=== PATIENT | female | born 1990 | race Caucasian/White ===

== ENCOUNTER 2021-12-29 14:12 | Emergency (ER) | payer OTHER ==
[~2021-12-29] VITALS: Ht 157.5 cm; Wt 57.6 kg
[2021-12-29 14:12] VITALS: BP 111/78
--- NOTE | 2021-12-29 14:15 | NUR ---
RECEIVED CALL FROM JENY FROM [facility]. PT IS A [employer], NO HOLD/SI/HI. JENY STATED THAT PT IS NORMALLY A/O X4/AMBULATORY BUT TODAY SHE ONLY WANTS TO SLEEP, LETHARGIC AND UNAWARE OF YEAR. PT A/O X1- NAME. UNAWARE OF SITUATION, DATE- STATED IT WAS 2011, LOCATION.
--- NOTE | 2021-12-29 15:00 | NUR ---
MD LO AT BEDSIDE FOR EVALUATION
--- NOTE | 2021-12-29 15:02 | NUR ---
31YO FEMALE PT BIBA FROM [facility] DUE TO ALOC XTHIS MORNING. PT STATES SHE FELL FORWARD ONTO DOOR CAUSING HER TO HIT HER FACE. DENIES LOC. PRESENTS WITH BRUISED NON PITTING SWELLING ON NOSE , LIPS AND TORY KNEES. PT WAS SEEN AT [facility] AND TOLD SHE HAD FRACTURED NOSE. PER FACILITY , PT LETHRAGIC AND WITH LOW BP. PT AAOX2 TO NAME AND SITUATION. WHEN ASKED ABOUT DATE , PT STATES "2011". SPEAKING CLEAR W/ SLIGHT DELAY . AMBULATORY W/ ASSIST. DENIES N/V/D , CHEST PAIN, SOB , FEVER OR CHILLS. RESPIRATIONS EVEN AND UNLABORED. PT IN VIEW, BED AT LOWEST POSITION, BED RAILS UPX2. HX :SCHIZOAFFECTIVE DISORDER, BIPOLAR, CONGENITAL HYPOTHYDRODISM WITH DIFFUSE GOITER, UNSPECIFIC CONVULSIONS ALLERGIES:PCN, IODINE, CRANBERRY
[2021-12-29] MEDS ORDERED: NACL 0.9% 1,000 ML IV ONE ×2 (15:05→15:50)
[2021-12-29 15:13] LABS: BASOPHILS % (AUTO) 0.2 % (0.0-2.0); EOSINOPHILS % (AUTO) 0.2 % (0.0-4.0); HEMATOCRIT 37.9 % (36-48); HEMOGLOBIN 12.8 g/dL (12.0-16.0); LYMPHOCYTES # (AUTO) 2.7 K/uL (2.5-16.5); LYMPHOCYTES % (AUTO) 36.9 % (20.5-51.1); MEAN CORPUSCULAR HEMOGLOBIN 31 pg (27-31); MEAN CORPUSCULAR HGB CONC 34 g/dL (33-37); MEAN CORPUSCULAR VOLUME 90.1 fL (80-94); MONOCYTES # (AUTO) 0.8 K/uL (0.8-1.0); MONOCYTES % (AUTO) 10.8 % (1.7-9.3); NEUTROPHILS # (AUTO) 3.8 K/uL (1.8-7.7); NEUTROPHILS % (AUTO) 51.9 % (42.2-75.2); PLATELET COUNT (AUTO) 130 K/uL (140-450); RED CELL DISTRIBUTION WIDTH 13.4 % (11.6-13.7); WHITE BLOOD COUNT (AUTO) 7.3 K/uL (4.8-10.8)
[2021-12-29 15:44] LABS: ALBUMIN 2.8 g/dL (3.4-5.0); ANION GAP 13.8 (8-16); CREATININE 0.6 mg/dL (0.6-1.3); FREE T4 (FREE THYROXINE) 0.73 ng/dL (0.76-1.46); POTASSIUM 3.8 mmol/L (3.5-5.1); THYROID STIMULATING HORMONE 1.77 uIU/mL (0.34-3.74); TOTAL BILIRUBIN 0.2 mg/dL (0.0-1.0)
[2021-12-29] MEDS ORDERED: ACETAMINOPHEN EXTRA STRENGTH 500 MG TAB PO ONE (15:50)
--- NOTE | 2021-12-29 16:10 | NUR ---
pt swabbed for covid(theodora) and flu . specimen walked and handed to lab
--- NOTE | 2021-12-29 16:11 | NUR ---
XRAY AT BEDSIDE
--- NOTE | 2021-12-29 16:21 | NUR ---
purewick in place. - high continuous suction
[2021-12-29] MEDS ORDERED: MIDAZOLAM 2 MG/2 ML VIAL IVP ONE (18:00)
--- NOTE | 2021-12-29 18:56 | NUR ---
PT UP FOR D/C. ATTEMPTED TO CONTACT FACILITY, NO ANSWER. CONTACTED PTS MOTHER, HER CONSERVATOR. SHE STATED SHE WILL CALL ME BACK WITHOUT FACILITYS CORRECT NUMBER.
--- NOTE | 2021-12-29 19:30 | NUR ---
REPORT GIVEN TO AUGUST RN. ALL QUESTIONS ANSWERED . TRANSFER OF CARE AT THIS TIME
--- NOTE | 2021-12-29 19:47 | NUR ---
Spoke Deric staff of [facility] for transportation, They did not have transportation for patient.
--- NOTE | 2021-12-29 20:45 | NUR ---
Patient was sitting on bed, vss.
--- NOTE | 2021-12-29 22:15 | NUR ---
Patient appears to be resting comfortably in bed. Vital Signs within normal limits. Respirations even and unlabored.
--- NOTE | 2021-12-30 01:27 | NUR ---
Patient is sleeping
--- NOTE | 2021-12-30 03:33 | NUR ---
Patient appears to be resting comfortably in bed. Vital Signs within normal limits. Respirations even and unlabored.
--- NOTE | 2021-12-30 03:57 | NUR ---
Changed suction container for purewick.
--- NOTE | 2021-12-30 06:11 | NUR ---
Patient appears to be resting comfortably in bed. Vital Signs within normal limits. Respirations even and unlabored.
--- NOTE | 2021-12-30 07:20 | NUR ---
Report recieved from SANDRA Herman for transfer of care.
[2021-12-30 08:18] VITALS: BP 107/68
--- NOTE | 2021-12-30 08:18 | NUR ---
Patient discharged with v/s stable. Written and verbal after care instructions given. Patient verbalized understanding. Wheel Chair Assisted with to car. All questions addressed prior to discharge. Advised to follow up with PMD.
--- NOTE | 2021-12-30 08:20 | NUR ---
Chart checked and completed. The patient's care was reviewed and supervised by Mary Kay Akbar RN.
== END 2021-12-30 08:18 | disposition home or self-care (01) ==
LOC: MED 14:12
DX: M25.561 Pain in right knee (principal); Z20.822 Contact with and (suspected) exposure to COVID-19; J34.89 Other specified disorders of nose and nasal sinuses; R53.83 Other fatigue; F31.9 Bipolar disorder, unspecified; E03.9 Hypothyroidism, unspecified; Z88.0 Allergy status to penicillin; Z91.040 Latex allergy status; Z91.018 Allergy to other foods
CPT/HCPCS: 36415; 70450; 70486; 71045; 80053; 81002; 81025; 82140; 83605; 84439; 84443; 85025; 87040; 87426; 87804; 96360; 96361; 99285; J7030; Q0092; J2250